=== PATIENT | female | born 1930 | race Caucasian/White ===

== ENCOUNTER 2020-04-14 19:33 | Inpatient (IN) | payer MEDICARE, OTHER ==
[~2020-04-14] VITALS: Ht 154.9 cm; Wt 53.3 kg
--- NOTE | 2020-04-14 19:50 | NUR ---
Dr. Perez at bedside for MSE.
--- NOTE | 2020-04-14 20:00 | NUR ---
Xray at bedside.
[2020-04-14] MEDS ORDERED: CARV3.12 PO (20:23)
[2020-04-14] MEDS ORDERED: ATOR40TA PO (20:23)
[2020-04-14] MEDS ORDERED: DONE5TAB34 PO (20:23)
[2020-04-14] MEDS ORDERED: CALC-883 PO (20:23)
[2020-04-14] MEDS ORDERED: MIRT-121 PO (20:31)
[2020-04-14] MEDS ORDERED: CRAN450C PO (20:31)
[2020-04-14] MEDS ORDERED: PSYL822P20 PO (20:31)
[2020-04-14] MEDS ORDERED: ZINC220C2 PO (20:31)
[2020-04-14] MEDS ORDERED: FERR325C PO (20:31)
[2020-04-14] MEDS ORDERED: ACET-2154 PO ×2 (20:31)
[2020-04-14] MEDS ORDERED: DOCU250C14 PO (20:31)
[2020-04-14] MEDS ORDERED: MAG355OR18 PO (20:31)
[2020-04-14] MEDS ORDERED: IPRA3AMP23 IH (20:31)
[2020-04-14] MEDS ORDERED: MULT1TAB11 PO (20:31)
[2020-04-14] MEDS ORDERED: LOPE2CAP PO (20:31)
[2020-04-14] MEDS ORDERED: [UNRECOGNIZED DRUG - CODE] PO (20:31)
[2020-04-14] MEDS ORDERED: NA P230E RC (20:31)
[2020-04-14 21:14] LABS: ABG BASE EXCESS -4.2 mmol/L; ABG HCO3 23.2 mmol/L; ABG PCO2 52.2 mmHg (35.0-45.0); ABG PH 7.265 (7.350-7.450); ABG PO2 87.8 mmHg (75.0-100.0); ABG SITE RIGHT RADIAL; ABG TOTAL HEMOGLOBIN 12.9 G/dL (12.0-16.0); COHb 1.6 % (0.5-1.5); MetHb 0.4 % (0.0-1.5)
[2020-04-14 21:16] LABS: BASOPHILS % (AUTO) 0.1 % (0.0-2.0); EOSINOPHILS % (AUTO) 0.1 % (0.0-7.0); HEMATOCRIT 40.1 % (31.2-41.9); HEMOGLOBIN 12.7 g/dL (10.9-14.3); LYMPHOCYTES # (AUTO) 0.7 K/uL (20.0-40.0); LYMPHOCYTES % (AUTO) 3.2 % (20.5-51.5); MEAN CORPUSCULAR HEMOGLOBIN 30.2 uug (24.7-32.8); MEAN CORPUSCULAR HGB CONC 32 g/dL (32.3-35.6); MEAN CORPUSCULAR VOLUME 95.5 fL (75.5-95.3); MONOCYTES # (AUTO) 0.8 K/uL (2.0-10.0); MONOCYTES % (AUTO) 3.7 % (0.0-11.0); NEUTROPHILS # (AUTO) 21.4 K/uL (1.8-8.9); NEUTROPHILS % (AUTO) 92.9 % (38.5-71.5); PLATELET COUNT (AUTO) 101 K/uL (179-408); WHITE BLOOD COUNT (AUTO) 23.1 K/uL (3.8-11.8)
[2020-04-14 21:40] LABS: CREATINE KINASE, TOTAL 62 U/L (26-192); POTASSIUM 3.8 mmol/L (3.5-5.1)
[2020-04-14 21:41] LABS: ALANINE AMINOTRANSFERASE 138 U/L (14-59); ALKALINE PHOSPHATASE 98 U/L (50-136); ASPARTATE AMINOTRANSFERASE 84 U/L (15-37); BILIRUBIN,TOTAL 0.8 mg/dL (0.2-1.0); CARBON DIOXIDE 27 mmol/L (21-32); CREATININE 2.6 mg/dL (0.6-1.3); GLUCOSE 114 mg/dL (74-106)
[2020-04-14 21:42] LABS: LACTATE DEHYDROGENASE 558 U/L (81-234); TOTAL PROTEIN, SERUM 6.5 g/dL (6.4-8.2)
[2020-04-14 21:43] LABS: CHLORIDE 129 mmol/L (98-107); UREA NITROGEN, BLOOD 86 mg/dL (7-18)
[2020-04-14 21:59] LABS: FERRITIN 1459 ng/mL (8-252)
--- NOTE | 2020-04-14 22:02 | NUR ---
Called [facility] nephrology to page Dr. Saenz.
[2020-04-14] MEDS ORDERED: PIPERACILLIN SODIUM/TAZOBACTAM 3.375 G in IV DEXTROSE 5% 50 ML IV ONE (22:15)
[2020-04-14] MEDS ORDERED: VANCOMYCIN 1G/D5W 200 ML PIGGYBACK IV ONE (22:15)
--- NOTE | 2020-04-14 22:25 | NUR ---
Dr. Perez speaking with Dr. Saenz.
[2020-04-14] MEDS ORDERED: IV NORMAL SALINE 500 ML IV ONE (22:30)
--- NOTE | 2020-04-14 23:43 | NUR ---
Inserted shannon catheter, patient tolerated procedure well, urine sample collected, sent to lab.
[2020-04-14] MEDS ORDERED: PIPERACILLIN/TAZOBACTAM/D5W 50 ML IV ONE (23:50)
[2020-04-14] MEDS ORDERED: VANCOMYCIN IV 200 ML ONE (23:51)
[2020-04-15 00:46] LABS: *BILIRUBIN,URIN NEGATIVE (NEGATIVE); *BLOOD, URINE 2+ (NEGATIVE); *CLARITY,URINE CLOUDY (CLEAR); *COLOR,URINE YELLOW (YELLOW); *KETONES,URINE NEGATIVE (NEGATIVE); *UROBILINOGEN,URINE 0.2 E.U./dl (NORMAL); LEUKOCYTE ESTERASE ,URINE 1+ (NEGATIVE); NITRITE, URINE NEGATIVE (NEGATIVE); PH,URINE 5.5 (5.0-8.0); UGLUCOSE NEGATIVE (NEGATIVE)
[2020-04-15 01:08] LABS: BACTERIA,URINE MODERATE /HPF (NONE SEEN); SQUAMOUS EPITHELIAL CELL,UR MANY /HPF (NONE SEEN); URINE AMORPHOUS URATE MODERATE /HPF
[2020-04-15 01:09] LABS: COARSE GRANULAR CASTS,URINE FEW /LPF
[2020-04-15] MEDS ORDERED: IV NORMAL SALINE 500 ML IV ONE (01:45)
--- NOTE | 2020-04-15 01:49 | NUR ---
Xray at bedside.
--- NOTE | 2020-04-15 02:30 | NUR ---
Report given to Gaye ROSADO Tele.
--- NOTE | 2020-04-15 03:50 | NUR ---
Received pt from ER via [employer]. Pt in stable condition. No s/s of distress at this time. Vitals taken. BP elevated at 179/72. Dr. Ortiz notified of patients admission and was informed that admitting orders are needed. No other issues or concerns at this time. Addendum: 04/15/20 at 0513 by VIVIANA COONEY RN Dr Ortiz stated that he would put in orders for admission and for high BP
[2020-04-15 04:00] VITALS: BP 179/72
--- NOTE | 2020-04-15 05:27 | NUR ---
Rechecked pts BP and it was 158/74
--- NOTE | 2020-04-15 05:58 | NUR ---
Called Dr. Ellison for ortho consult.
--- NOTE | 2020-04-15 07:03 | NUR ---
Pt slept throughout the rest of the shift with no complaints. Denies pain or SOB. Safety and comfort provided. SR on monitor. Dr. Ortiz spoken to again and orders were placed. No other issues or concerns at this time. Will endorse to day shift.
[2020-04-15] MEDS ORDERED: ACETAMINOPHEN 325 MG TABLET PO PRN (07:15)
[2020-04-15] MEDS ORDERED: ONDANSETRON 4 MG/2 ML VIAL IV PRN (07:15)
[2020-04-15] MEDS ORDERED: ZOLPIDEM 5 MG TABLET PO PRN (07:15)
[2020-04-15] MEDS ORDERED: Z GUARD REMEDY PASTE 57 GM TUBE TOP PRN (07:15)
[2020-04-15] MEDS ORDERED: MAGNESIUM HYDROXIDE 30 ML LIQUID UDC PO PRN (07:15)
[2020-04-15] MEDS: IV 1/2NS 1000 ML 1,000 ML IV PRN ×2 (07:18→18:33)
--- NOTE | 2020-04-15 07:43 | NUR ---
Still waiting on pharmacy to bring 0700 antibiotics - notified day shift
[2020-04-15] MEDS: CEFTRIAXONE 1 G in IV DEXTROSE 5% 50 ML IV SCH (08:27)
[2020-04-15] MEDS: CARVEDILOL 3.125 MG TABLET PO SCH ×3 (09:40→21:00)
[2020-04-15] MEDS: DONEPEZIL 5 MG TABLET PO SCH (09:40)
[2020-04-15] MEDS: MIRTAZAPINE 15 MG TABLET PO SCH (09:40)
[2020-04-15] MEDS: HEPARIN SODIUM,PORCINE 5,000 UNITS/ML VIAL SQ SCH ×2 (09:52→20:36)
[2020-04-15 10:22] LABS: HEMATOCRIT 38.2 % (31.2-41.9); HEMOGLOBIN 11.7 g/dL (10.9-14.3); LYMPHOCYTES # (AUTO) 1.1 K/uL (20.0-40.0); LYMPHOCYTES % (AUTO) 4.4 % (20.5-51.5); MEAN CORPUSCULAR HEMOGLOBIN 30.1 uug (24.7-32.8); MEAN CORPUSCULAR HGB CONC 31 g/dL (32.3-35.6); MEAN CORPUSCULAR VOLUME 97.9 fL (75.5-95.3); MONOCYTES # (AUTO) 1.1 K/uL (2.0-10.0); MONOCYTES % (AUTO) 4.3 % (0.0-11.0); NEUTROPHILS # (AUTO) 22.8 K/uL (1.8-8.9); NEUTROPHILS % (AUTO) 91.3 % (38.5-71.5); PLATELET COUNT (AUTO) 90 K/uL (179-408); WHITE BLOOD COUNT (AUTO) 24.9 K/uL (3.8-11.8)
[2020-04-15 10:36] LABS: ALANINE AMINOTRANSFERASE 138 U/L (14-59); ALKALINE PHOSPHATASE 84 U/L (50-136); ASPARTATE AMINOTRANSFERASE 87 U/L (15-37); BILIRUBIN,TOTAL 0.5 mg/dL (0.2-1.0); CARBON DIOXIDE 24 mmol/L (21-32); CREATININE 2.4 mg/dL (0.6-1.3); GLUCOSE 130 mg/dL (74-106); MAGNESIUM 1.9 mg/dL (1.8-2.4); PHOSPHOROUS 4.5 mg/dL (2.5-4.9); TOTAL PROTEIN, SERUM 5.8 g/dL (6.4-8.2); UREA NITROGEN, BLOOD 79 mg/dL (7-18)
[2020-04-15 10:48] LABS: CHLORIDE 129 mmol/L (98-107)
[2020-04-15 16:00] VITALS: BP 169/67
--- NOTE | 2020-04-15 19:15 | NUR ---
endorsed by day shift nurse , dr stevenson came to see patient , but not a candidate right now for surgery
--- NOTE | 2020-04-15 19:30 | NUR ---
received patient , non verbal , very pale , npo , incontinet , right shoulder bone protruding from the previous fall from the facility , right arm swollen , left arm slightly swollen and bruised , mid line intact with 1/2 ns at 125 ml running
[2020-04-15 20:00] VITALS: BP 126/78
[2020-04-15] MEDS: ATORVASTATIN 40 MG TABLET PO SCH ×2 (20:35→21:00)
[2020-04-16] VITALS: BP 136/70
--- NOTE | 2020-04-16 00:44 | NUR ---
16 fr shannon catheter was inserted with one attempt , clear yellow output but very minimal output
[2020-04-16] MEDS: IV 1/2NS 1000 ML 1,000 ML IV PRN (02:39)
[2020-04-16] MEDS ORDERED: Z GUARD REMEDY PASTE 57 GM TUBE TOP PRN (03:15)
[2020-04-16 04:00] VITALS: BP 143/78
[2020-04-16 06:31] LABS: *BILIRUBIN,URIN NEGATIVE (NEGATIVE); *BLOOD, URINE 2+ (NEGATIVE); *CLARITY,URINE SLIGHTLY CLOUDY (CLEAR); *COLOR,URINE YELLOW (YELLOW); *KETONES,URINE NEGATIVE (NEGATIVE); *UROBILINOGEN,URINE 0.2 E.U./dl (NORMAL); LEUKOCYTE ESTERASE ,URINE NEGATIVE (NEGATIVE); NITRITE, URINE NEGATIVE (NEGATIVE); PH,URINE 5.5 (5.0-8.0); UGLUCOSE NEGATIVE (NEGATIVE)
[2020-04-16 07:37] LABS: *CREATININE,URINE 44.2 mg/dL (30-125)
[2020-04-16 08:27] LABS: BASOPHILS # (AUTO) 0.1 K/uL (0.0-8.0); BASOPHILS % (AUTO) 0.3 % (0.0-2.0); EOSINOPHILS # (AUTO) 0.1 K/uL (0.0-0.7); EOSINOPHILS % (AUTO) 0.6 % (0.0-7.0); HEMATOCRIT 32.4 % (31.2-41.9); HEMOGLOBIN 10.1 g/dL (10.9-14.3); LYMPHOCYTES # (AUTO) 1.3 K/uL (20.0-40.0); LYMPHOCYTES % (AUTO) 7.7 % (20.5-51.5); MEAN CORPUSCULAR HEMOGLOBIN 30.4 uug (24.7-32.8); MEAN CORPUSCULAR HGB CONC 31 g/dL (32.3-35.6); MEAN CORPUSCULAR VOLUME 97.8 fL (75.5-95.3); MONOCYTES # (AUTO) 0.7 K/uL (2.0-10.0); MONOCYTES % (AUTO) 4.2 % (0.0-11.0); NEUTROPHILS # (AUTO) 14.6 K/uL (1.8-8.9); NEUTROPHILS % (AUTO) 87.2 % (38.5-71.5); PLATELET COUNT (AUTO) 76 K/uL (179-408); RED BLOOD CELL COUNT(AUTO) 3.31 MIL/uL (3.63-4.92); WHITE BLOOD COUNT (AUTO) 16.7 K/uL (3.8-11.8)
[2020-04-16] MEDS: DONEPEZIL 5 MG TABLET PO SCH (09:00)
[2020-04-16] MEDS: MIRTAZAPINE 15 MG TABLET PO SCH (09:00)
[2020-04-16] MEDS: CARVEDILOL 3.125 MG TABLET PO SCH (09:00)
[2020-04-16 09:02] LABS: THYROID STIMULATING HORMONE 0.914 mIU/mL (0.358-3.740)
[2020-04-16 09:04] LABS: CREATINE KINASE, TOTAL 50 U/L (26-192)
[2020-04-16 09:28] LABS: ALANINE AMINOTRANSFERASE 124 U/L (14-59); ALKALINE PHOSPHATASE 90 U/L (50-136); ASPARTATE AMINOTRANSFERASE 89 U/L (15-37); BILIRUBIN,TOTAL 0.6 mg/dL (0.2-1.0); CARBON DIOXIDE 19 mmol/L (21-32); CHOLESTEROL 111 mg/dL (<200); CREATININE 2.2 mg/dL (0.6-1.3); GLUCOSE 68 mg/dL (74-106); HDL CHOLESTEROL 39 mg/dL (40-60); MAGNESIUM 1.6 mg/dL (1.8-2.4); PHOSPHOROUS 3.1 mg/dL (2.5-4.9); TOTAL PROTEIN, SERUM 5.1 g/dL (6.4-8.2); TRIGLYCERIDES 121 MG/DL (30-150); UREA NITROGEN, BLOOD 72 mg/dL (7-18)
[2020-04-16] MEDS: CEFTRIAXONE 1 G in IV DEXTROSE 5% 50 ML IV SCH (09:35)
[2020-04-16] MEDS: HEPARIN SODIUM,PORCINE 5,000 UNITS/ML VIAL SQ SCH ×2 (09:36→22:03)
[2020-04-16 09:52] LABS: CHLORIDE 126 mmol/L (98-107)
[2020-04-16 11:02] VITALS: BP 111/44
[2020-04-16] MEDS ORDERED: MAGNESIUM SULFATE/D5W 100 ML IV SCH (11:15)
--- NOTE | 2020-04-16 11:28 | NUR ---
WOUND CARE CONSULT: REVIEWED CHART,NURSING DOCUMENTATION AND PHOTOS WHICH INDICATE RASH TO BUTTOCKS, PRESENT ON ADMISSION. RECOMMENDATIONS MADE FOR SKIN PROTECTION. DISCUSSED WITH NURSING STAFF. MD IN AGREEMENT WITH PLAN OF CARE.
[2020-04-16 15:06] VITALS: BP 116/38
[2020-04-16 17:16] LABS: BACTERIA,URINE NONE SEEN /HPF (NONE SEEN); SQUAMOUS EPITHELIAL CELL,UR FEW /HPF (NONE SEEN); WBC,URINE NONE SEEN /HPF (0-3); YEAST,URINE FEW /HPF (NONE SEEN)
[2020-04-16] MEDS: CLOTRIMAZOLE 1% CREAM 30 GM TUBE TOP SCH (17:18)
--- NOTE | 2020-04-16 19:34 | NUR ---
pt resting in bed, no signs of distress noted. safety precautions in place. will endorse to oncoming nurse.
[2020-04-16 20:00] VITALS: BP 138/69
--- NOTE | 2020-04-16 20:00 | NUR ---
AWAKE EYES OPEN,EYES RED, NO COMPLAINED OF PAIN.RIGHT ARM SWOLLEN AND PURPLE, ELEVATED IN ONE PILLOW WITH FAINT RADIAL PULSE.AIR MATTRESS PLACED,SACRUM AREA RED Z GUARD APPLIED,NO PAIN NOTED,REPOSITION FOR COMFORT.
[2020-04-17] VITALS: BP 132/65
[2020-04-17] MEDS: IV 1/2NS 1000 ML 1,000 ML IV PRN (02:44)
[2020-04-17 04:00] VITALS: BP 127/55
[2020-04-17 08:06] LABS: HEPATITIS B SURFACE AB Reactive (.); HEPATITIS B SURFACE AG Negative (Negative)
[2020-04-17] MEDS: CARVEDILOL 3.125 MG TABLET PO SCH ×2 (09:00→21:40)
[2020-04-17] MEDS: CEFTRIAXONE 1 G in IV DEXTROSE 5% 50 ML IV SCH (10:54)
[2020-04-17] MEDS: HEPARIN SODIUM,PORCINE 5,000 UNITS/ML VIAL SQ SCH ×2 (10:55→21:39)
[2020-04-17 11:22] LABS: BASOPHILS % (AUTO) 0.3 % (0.0-2.0); EOSINOPHILS # (AUTO) 0.1 K/uL (0.0-0.7); EOSINOPHILS % (AUTO) 0.7 % (0.0-7.0); HEMATOCRIT 28.1 % (31.2-41.9); HEMOGLOBIN 8.7 g/dL (10.9-14.3); LYMPHOCYTES # (AUTO) 1.4 K/uL (20.0-40.0); MEAN CORPUSCULAR HEMOGLOBIN 29.8 uug (24.7-32.8); MEAN CORPUSCULAR HGB CONC 31 g/dL (32.3-35.6); MEAN CORPUSCULAR VOLUME 96.7 fL (75.5-95.3); MONOCYTES # (AUTO) 0.5 K/uL (2.0-10.0); MONOCYTES % (AUTO) 3.8 % (0.0-11.0); NEUTROPHILS # (AUTO) 12.1 K/uL (1.8-8.9); NEUTROPHILS % (AUTO) 85.2 % (38.5-71.5); PLATELET COUNT (AUTO) 72 K/uL (179-408); RED BLOOD CELL COUNT(AUTO) 2.91 MIL/uL (3.63-4.92); WHITE BLOOD COUNT (AUTO) 14.2 K/uL (3.8-11.8)
[2020-04-17 11:40] LABS: CARBON DIOXIDE 16 mmol/L (21-32); CHLORIDE 119 mmol/L (98-107); CREATININE 1.9 mg/dL (0.6-1.3); GLUCOSE 80 mg/dL (74-106); POTASSIUM 3.9 mmol/L (3.5-5.1); UREA NITROGEN, BLOOD 77 mg/dL (7-18)
[2020-04-17 11:48] VITALS: BP 103/57
[2020-04-17] MEDS: CLOTRIMAZOLE 1% CREAM 30 GM TUBE TOP SCH ×2 (11:55→17:42)
[2020-04-17 15:47] VITALS: BP 130/90
[2020-04-17] MEDS: IV D5W 1000ML 1,000 ML IV PRN (19:42)
--- NOTE | 2020-04-17 20:00 | NUR ---
ASLEEP. IV CHANGED TO D5W RIGHT ARM ELEVATED IN 1 PILLOW, RIGHT ARM PURPLISH IN COLR WITH FAINT RADIAL PULSE, BP HIGH COREG GIVEN WITH LITTLE BIT OF APPLE SAUCE. SACRUM WITH RASHES NOTED, CREAM APPLIED, COVID ISOLATION MAINTAIN.CONDION UNCHANGED. SLEPT AT LONG INTERVAL.
[2020-04-17 21:37] VITALS: BP 169/68
[2020-04-17] MEDS: ATORVASTATIN 40 MG TABLET PO SCH (21:40)
[2020-04-18 00:39] VITALS: BP 173/60
[2020-04-18 04:26] VITALS: BP 128/82
[2020-04-18] MEDS: IV D5W 1000ML 1,000 ML IV PRN (06:40)
[2020-04-18 08:10] LABS: A/G RATIO 0.8 (0.7-1.7); ALPHA-1-GLOBULIN 0.2 g/dL (0.0-0.4); ALPHA-2-GLOBULIN 0.5 g/dL (0.4-1.0); BETA GLOBULIN 0.8 g/dL (0.7-1.3); GAMMA GLOBULIN 0.8 g/dL (0.4-1.8); GLOBULIN, TOTAL 2.4 g/dL (2.2-3.9); M-SPIKE Not Observed g/dL (Not Observed)
[2020-04-18 08:19] LABS: BASOPHILS % (AUTO) 0.4 % (0.0-2.0); EOSINOPHILS # (AUTO) 0.2 K/uL (0.0-0.7); EOSINOPHILS % (AUTO) 1.8 % (0.0-7.0); HEMATOCRIT 22.3 % (31.2-41.9); LYMPHOCYTES # (AUTO) 1.2 K/uL (20.0-40.0); LYMPHOCYTES % (AUTO) 11.4 % (20.5-51.5); MEAN CORPUSCULAR HEMOGLOBIN 31.2 uug (24.7-32.8); MEAN CORPUSCULAR HGB CONC 33 g/dL (32.3-35.6); MEAN CORPUSCULAR VOLUME 94.6 fL (75.5-95.3); MONOCYTES # (AUTO) 0.4 K/uL (2.0-10.0); MONOCYTES % (AUTO) 3.9 % (0.0-11.0); NEUTROPHILS # (AUTO) 8.5 K/uL (1.8-8.9); NEUTROPHILS % (AUTO) 82.5 % (38.5-71.5); PLATELET COUNT (AUTO) 65 K/uL (179-408); WHITE BLOOD COUNT (AUTO) 10.3 K/uL (3.8-11.8)
[2020-04-18 09:18] LABS: ALANINE AMINOTRANSFERASE 75 U/L (14-59); ALKALINE PHOSPHATASE 70 U/L (50-136); ASPARTATE AMINOTRANSFERASE 63 U/L (15-37); BILIRUBIN,TOTAL 0.4 mg/dL (0.2-1.0); CARBON DIOXIDE 14 mmol/L (21-32); CHLORIDE 115 mmol/L (98-107); CREATININE 1.6 mg/dL (0.6-1.3); GLUCOSE 119 mg/dL (74-106); MAGNESIUM 1.7 mg/dL (1.8-2.4); PHOSPHOROUS 1.2 mg/dL (2.5-4.9); TOTAL PROTEIN, SERUM 3.9 g/dL (6.4-8.2)
[2020-04-18 10:09] LABS: UREA NITROGEN, BLOOD 80 mg/dL (7-18)
[2020-04-18 10:10] LABS: RED BLOOD CELL COUNT(AUTO) 2.35 MIL/uL (3.63-4.92)
[2020-04-18 10:12] LABS: POTASSIUM 2.8 mmol/L (3.5-5.1)
[2020-04-18 10:14] LABS: HEMOGLOBIN 7.3 g/dL (10.9-14.3)
--- NOTE | 2020-04-18 10:15 | NUR ---
1012AM - Received critical values from lab: Hgb 7.3, Potassium 2.8, Albumin 1.3, BUN 80. [facility] Nurse Practitioner, Bruce input new orders. Nurse carried out orders
[2020-04-18] MEDS: MIRTAZAPINE 15 MG TABLET PO SCH (10:35)
[2020-04-18] MEDS: DONEPEZIL 5 MG TABLET PO SCH (10:35)
[2020-04-18] MEDS: CARVEDILOL 3.125 MG TABLET PO SCH ×2 (10:35→21:00)
[2020-04-18] MEDS: CLOTRIMAZOLE 1% CREAM 30 GM TUBE TOP SCH ×2 (10:41→16:55)
[2020-04-18] MEDS: HEPARIN SODIUM,PORCINE 5,000 UNITS/ML VIAL SQ SCH ×2 (10:44→21:00)
[2020-04-18] MEDS: CEFTRIAXONE 1 G in IV DEXTROSE 5% 50 ML IV SCH (10:47)
[2020-04-18] MEDS ORDERED: POTASSIUM PHOSPHATE MM 15 MMOL in IV NORMAL SALINE 250 ML IV ONE (11:00)
[2020-04-18] MEDS ORDERED: MAGNESIUM SULFATE/D5W 100 ML IV SCH (11:00)
[2020-04-18] MEDS: POTASSIUM CHLORIDE 50 ML IV SCH ×5 (13:43→18:30)
[2020-04-18 14:15] VITALS: BP 99/54
[2020-04-18 17:07] VITALS: BP 92/35
[2020-04-18] MEDS ORDERED: POTASSIUM CHLORIDE 50 ML IV SCH (19:00)
--- NOTE | 2020-04-18 19:30 | NUR ---
Pt received in bed, alert to self. On RA sating at 96%. No acute distress noted. Bed is locked and in lowest position. Does not appear to have pain. No other issues or concerns a this time.
[2020-04-18 20:01] LABS: EOSINOPHILS % (MANUAL) 1 % (0-8); LYMPHOCYTES % (MANUAL) 8 % (20-40); MONOCYTES % (MANUAL) 1 % (2-10); NEUTROPHILS % (MANUAL) 90 % (42-75)
[2020-04-18] MEDS: ATORVASTATIN 40 MG TABLET PO SCH (21:00)
--- NOTE | 2020-04-18 21:00 | NUR ---
Heparin not administered - platelets 67
[2020-04-18 21:07] VITALS: BP 128/100
--- NOTE | 2020-04-18 23:00 | NUR ---
Day shift was unable to start potassium infusion. Potassium started at 2300 04/18/2020. Will notify pharmacy in AM
[2020-04-18] MEDS: POTASSIUM PHOSPHATE MM 7.5 MMOL in IV NORMAL SALINE 97.5 ML IV SCH (23:01)
[2020-04-18] MEDS: IV D5 1/2 NS 1000 ML 1,000 ML IV PRN (23:01)
[2020-04-19 01:28] VITALS: BP 116/53
[2020-04-19] MEDS: POTASSIUM PHOSPHATE MM 7.5 MMOL in IV NORMAL SALINE 97.5 ML IV SCH (03:48)
[2020-04-19 05:49] VITALS: BP 107/66
--- NOTE | 2020-04-19 07:59 | NUR ---
Spoke to pharmacy about potassium 2000 not being given due to running K Phos during my shift. He stated he will adjust the time based off of potassium lab results.
[2020-04-19 08:04] LABS: MEAN CORPUSCULAR VOLUME 93.6 fL (75.5-95.3)
[2020-04-19 08:06] LABS: BASOPHILS % (AUTO) 0.4 % (0.0-2.0); EOSINOPHILS # (AUTO) 0.2 K/uL (0.0-0.7); EOSINOPHILS % (AUTO) 1.4 % (0.0-7.0); LYMPHOCYTES # (AUTO) 1.4 K/uL (20.0-40.0); LYMPHOCYTES % (AUTO) 12.6 % (20.5-51.5); MEAN CORPUSCULAR HEMOGLOBIN 30.6 uug (24.7-32.8); MEAN CORPUSCULAR HGB CONC 33 g/dL (32.3-35.6); MONOCYTES # (AUTO) 0.4 K/uL (2.0-10.0); NEUTROPHILS # (AUTO) 9.2 K/uL (1.8-8.9); NEUTROPHILS % (AUTO) 81.6 % (38.5-71.5); PLATELET COUNT (AUTO) 65 K/uL (179-408); WHITE BLOOD COUNT (AUTO) 11.2 K/uL (3.8-11.8)
[2020-04-19] MEDS: DONEPEZIL 5 MG TABLET PO SCH (09:00)
[2020-04-19] MEDS: MIRTAZAPINE 15 MG TABLET PO SCH (09:00)
[2020-04-19] MEDS ORDERED: FAMOTIDINE. 20 MG/2 ML VIAL IV SCH (09:00)
[2020-04-19] MEDS: CARVEDILOL 3.125 MG TABLET PO SCH ×2 (09:00→21:00)
[2020-04-19 09:07] LABS: RED BLOOD CELL COUNT(AUTO) 1.69 MIL/uL (3.63-4.92)
[2020-04-19 09:10] LABS: HEMOGLOBIN 5.2 g/dL (10.9-14.3)
[2020-04-19 09:11] LABS: HEMATOCRIT 15.9 % (31.2-41.9)
[2020-04-19 09:49] LABS: ALANINE AMINOTRANSFERASE 74 U/L (14-59); ALKALINE PHOSPHATASE 67 U/L (50-136); ASPARTATE AMINOTRANSFERASE 57 U/L (15-37); BILIRUBIN,TOTAL 0.4 mg/dL (0.2-1.0); CARBON DIOXIDE 14 mmol/L (21-32); CHLORIDE 115 mmol/L (98-107); CREATININE 1.6 mg/dL (0.6-1.3); GLUCOSE 81 mg/dL (74-106); MAGNESIUM 1.7 mg/dL (1.8-2.4); PHOSPHOROUS 2.7 mg/dL (2.5-4.9); POTASSIUM 4.3 mmol/L (3.5-5.1)
[2020-04-19] MEDS: FAMOTIDINE. 20 MG/2 ML VIAL IV SCH ×2 (09:49→21:23)
[2020-04-19] MEDS: CLOTRIMAZOLE 1% CREAM 30 GM TUBE TOP SCH ×2 (09:49→16:40)
[2020-04-19 09:53] LABS: UREA NITROGEN, BLOOD 82 mg/dL (7-18)
[2020-04-19] MEDS: CEFTRIAXONE 1 G in IV DEXTROSE 5% 50 ML IV SCH (09:54)
[2020-04-19 11:42] LABS: IRON, SERUM 36 ug/dL (50-175)
[2020-04-19 12:09] LABS: FERRITIN 720 ng/mL (8-252)
[2020-04-19 15:55] LABS: NEUTROPHILS % (MANUAL) 81 % (42-75)
[2020-04-19 15:56] LABS: EOSINOPHILS % (MANUAL) 1 % (0-8); LYMPHOCYTES % (MANUAL) 14 % (20-40); MONOCYTES % (MANUAL) 4 % (2-10)
--- NOTE | 2020-04-19 18:27 | NUR ---
patient is alert and oriented to touch only. She opens her eyes when she hears staff voice but does not respond. Critical lab values of hemoglobin 5.2 and hematocrit 15.[address] Rivas. Orders placed for packed RBC blood transfusion. This video game script writer attempted to contact patient's family. Called and left message x2 for Anibal Forbes (next of kin) [phone], waiting for call back to obtain consent for blood transfusion. patient is on air mattress. On room air, tolerating well, saturating above 95%. Patient is currently NPO because she is not alert enough to swallow. ST evaluation done, patient failed per ST. PO medications held.
--- NOTE | 2020-04-19 19:30 | NUR ---
patient received lying in bed. pale and cold. non verbal and confused. 1 unit of blood ordered during day time not given. BP at 82/51 and HR 55. will contact Dr. Rivas regarding patient status.
[2020-04-19 20:21] VITALS: BP 105/72
[2020-04-19] MEDS: ATORVASTATIN 40 MG TABLET PO SCH ×2 (21:00→21:23)
--- NOTE | 2020-04-19 21:00 | NUR ---
dr. mora zambrano provided verbal consent for emergency blood transfusion for patient. consent in file for Dr to follow up.
[2020-04-19 22:15] VITALS: BP 85/52
[2020-04-19 22:30] VITALS: BP 88/51
[2020-04-19 23:00] VITALS: BP 92/61
[2020-04-20] VITALS (14 sets, daily range): BP systolic 97–142; BP diastolic 33–106
[2020-04-20] MEDS: IV D5 1/2 NS 1000 ML 1,000 ML IV PRN (01:27)
--- NOTE | 2020-04-20 01:30 | NUR ---
blood transfusion complete. no reaction. will continue to monitor and assess.
[2020-04-20 03:28] LABS: HEMOGLOBIN 7.8 g/dL (10.9-14.3)
[2020-04-20] MEDS: CEFTRIAXONE 1 G in IV DEXTROSE 5% 50 ML IV SCH (08:35)
[2020-04-20] MEDS: FAMOTIDINE. 20 MG/2 ML VIAL IV SCH (08:41)
[2020-04-20] MEDS: DONEPEZIL 5 MG TABLET PO SCH (08:44)
[2020-04-20] MEDS: MIRTAZAPINE 15 MG TABLET PO SCH (08:45)
[2020-04-20] MEDS: CARVEDILOL 3.125 MG TABLET PO SCH ×2 (08:45→21:00)
[2020-04-20] MEDS: CLOTRIMAZOLE 1% CREAM 30 GM TUBE TOP SCH ×2 (08:46→17:03)
[2020-04-20 09:22] LABS: BASOPHILS # (AUTO) 0.1 K/uL (0.0-8.0); BASOPHILS % (AUTO) 1.1 % (0.0-2.0); EOSINOPHILS # (AUTO) 0.2 K/uL (0.0-0.7); EOSINOPHILS % (AUTO) 2.7 % (0.0-7.0); LYMPHOCYTES # (AUTO) 0.7 K/uL (20.0-40.0); LYMPHOCYTES % (AUTO) 9.5 % (20.5-51.5); MEAN CORPUSCULAR HEMOGLOBIN 30.6 uug (24.7-32.8); MEAN CORPUSCULAR HGB CONC 33 g/dL (32.3-35.6); MEAN CORPUSCULAR VOLUME 92.8 fL (75.5-95.3); MONOCYTES # (AUTO) 0.2 K/uL (2.0-10.0); MONOCYTES % (AUTO) 3.3 % (0.0-11.0); NEUTROPHILS # (AUTO) 6.3 K/uL (1.8-8.9); NEUTROPHILS % (AUTO) 83.4 % (38.5-71.5); PLATELET COUNT (AUTO) 53 K/uL (179-408); WHITE BLOOD COUNT (AUTO) 7.6 K/uL (3.8-11.8)
[2020-04-20 09:35] LABS: RED BLOOD CELL COUNT(AUTO) 2.22 MIL/uL (3.63-4.92)
[2020-04-20 09:39] LABS: HEMOGLOBIN 6.8 g/dL (10.9-14.3)
[2020-04-20 09:40] LABS: HEMATOCRIT 20.6 % (31.2-41.9)
[2020-04-20 09:45] LABS: ALANINE AMINOTRANSFERASE 62 U/L (14-59); ALKALINE PHOSPHATASE 69 U/L (50-136); ASPARTATE AMINOTRANSFERASE 45 U/L (15-37); BILIRUBIN,TOTAL 0.4 mg/dL (0.2-1.0); CARBON DIOXIDE 16 mmol/L (21-32); CHLORIDE 114 mmol/L (98-107); CREATININE 1.7 mg/dL (0.6-1.3); GLUCOSE 113 mg/dL (74-106); MAGNESIUM 1.7 mg/dL (1.8-2.4); PHOSPHOROUS 2.3 mg/dL (2.5-4.9); TOTAL PROTEIN, SERUM 4.2 g/dL (6.4-8.2); UREA NITROGEN, BLOOD 61 mg/dL (7-18)
--- NOTE | 2020-04-20 12:19 | NUR ---
DR RODRIGUEZ NOTIFIED OF LOW HH WITH ORDER TO TRANSFUSE 1 UNIT PRBC
--- NOTE | 2020-04-20 14:03 | NUR ---
blood transfusion started
[2020-04-20] MEDS ORDERED: SODIUM PHOSPHATE MM 15 MMOL in IV NORMAL SALINE 250 ML IV ONE (16:30)
--- NOTE | 2020-04-20 17:00 | NUR ---
BLOOD TRANSFUSION COMPLETED WITHOUT ANY REACTION
[2020-04-20 17:32] LABS: BAND % (MANUAL) 1 % (0-10); NEUTROPHILS % (MANUAL) 83 % (42-75)
[2020-04-20 17:33] LABS: EOSINOPHILS % (MANUAL) 6 % (0-8); LYMPHOCYTES % (MANUAL) 9 % (20-40); MONOCYTES % (MANUAL) 1 % (2-10)
--- NOTE | 2020-04-20 19:43 | NUR ---
Pt is resting in bed, AOx1. No distress noted at this time. SR on monitor. On 2L for comfort, tolerating well sating at 100%. Bed is locked and in lowest position. No other issues or concerns at this time.
[2020-04-20] MEDS: ATORVASTATIN 40 MG TABLET PO SCH (21:00)
[2020-04-21 00:57] VITALS: BP 126/61
[2020-04-21 04:00] VITALS: BP 120/31
--- NOTE | 2020-04-21 06:40 | NUR ---
Pt slept throughout the night. Does not appear to be in any distress at this time. SR on monitor. On 2L NC sating at 100%. Safety and comfort provided. Bed is locked and in lowest position. No other issues or concerns at this time. Will endorse to day shift.
[2020-04-21] MEDS: IV D5 1/2 NS 1000 ML 1,000 ML IV PRN (06:45)
[2020-04-21 07:30] LABS: CARBON DIOXIDE 17 mmol/L (21-32); CHLORIDE 115 mmol/L (98-107); CREATININE 1.8 mg/dL (0.6-1.3); GLUCOSE 144 mg/dL (74-106); PHOSPHOROUS 4.5 mg/dL (2.5-4.9); POTASSIUM 3.8 mmol/L (3.5-5.1); UREA NITROGEN, BLOOD 53 mg/dL (7-18)
[2020-04-21 08:01] LABS: BASOPHILS % (AUTO) 0.4 % (0.0-2.0); EOSINOPHILS # (AUTO) 0.1 K/uL (0.0-0.7); EOSINOPHILS % (AUTO) 1.5 % (0.0-7.0); HEMATOCRIT 28.6 % (31.2-41.9); HEMOGLOBIN 9.5 g/dL (10.9-14.3); LYMPHOCYTES # (AUTO) 0.6 K/uL (20.0-40.0); MEAN CORPUSCULAR HGB CONC 33 g/dL (32.3-35.6); MEAN CORPUSCULAR VOLUME 90.6 fL (75.5-95.3); MONOCYTES # (AUTO) 0.2 K/uL (2.0-10.0); MONOCYTES % (AUTO) 3.1 % (0.0-11.0); NEUTROPHILS # (AUTO) 5.6 K/uL (1.8-8.9); RED BLOOD CELL COUNT(AUTO) 3.16 MIL/uL (3.63-4.92); WHITE BLOOD COUNT (AUTO) 6.5 K/uL (3.8-11.8)
[2020-04-21] MEDS: CEFTRIAXONE 1 G in IV DEXTROSE 5% 50 ML IV SCH (08:13)
[2020-04-21] MEDS: FAMOTIDINE. 20 MG/2 ML VIAL IV SCH (08:16)
[2020-04-21 08:46] VITALS: BP 124/54
[2020-04-21] MEDS: DONEPEZIL 5 MG TABLET PO SCH (09:00)
[2020-04-21] MEDS: MIRTAZAPINE 15 MG TABLET PO SCH (09:00)
[2020-04-21] MEDS: CARVEDILOL 3.125 MG TABLET PO SCH ×2 (09:00→20:37)
[2020-04-21 09:46] LABS: PLATELET COUNT (AUTO) 49 K/uL (179-408)
[2020-04-21] MEDS: CLOTRIMAZOLE 1% CREAM 30 GM TUBE TOP SCH ×2 (09:47→16:49)
[2020-04-21 11:47] VITALS: BP 128/51
[2020-04-21 12:26] LABS: *RHEUMATOID FACTOR SCREEN NEGATIVE (NEGATIVE)
[2020-04-21 15:51] VITALS: BP 143/73
[2020-04-21 19:16] LABS: LYMPHOCYTES % (MANUAL) 10 % (20-40); MONOCYTES % (MANUAL) 4 % (2-10); NEUTROPHILS % (MANUAL) 86 % (42-75)
[2020-04-21 20:34] VITALS: BP 128/80
[2020-04-21] MEDS: ATORVASTATIN 40 MG TABLET PO SCH (20:37)
--- NOTE | 2020-04-21 22:00 | NUR ---
Received pt lying bed, nonverbal and confused. Responsive to light pain, opens eyes. No acute distress noted at the moment. Skin is pale dry and cold to touch. Vitals WNL. On 2L NC saturating @100%, no SOB noted. Sinus veronica on the monitor, 40-50s. On air mattress, turned Q2H. Wound on sacrum completed. NPO, medications held. PATRICIA midline intact, running D51/2NS 100cc/hr. All needs attended too. Safety measure in place. Will continue to monitor.
--- NOTE | 2020-04-21 22:30 | NUR ---
Spoke to lab multiple time to collect one time order for free kappa lamda light chains, under miscellaneous order. Lab unable to collect, because "unsure which tubes are needed for this lab order. Will follow up with day shift to clarify.
[2020-04-22 00:14] VITALS: BP 103/83
[2020-04-22 04:00] VITALS: BP 96/33
[2020-04-22] MEDS: IV D5 1/2 NS 1000 ML 1,000 ML IV PRN (04:48)
[2020-04-22 07:27] LABS: ALANINE AMINOTRANSFERASE 48 U/L (14-59); ALKALINE PHOSPHATASE 65 U/L (50-136); ASPARTATE AMINOTRANSFERASE 42 U/L (15-37); BILIRUBIN,TOTAL 0.3 mg/dL (0.2-1.0); CARBON DIOXIDE 15 mmol/L (21-32); CHLORIDE 113 mmol/L (98-107); CREATININE 1.6 mg/dL (0.6-1.3); GLUCOSE 123 mg/dL (74-106); MAGNESIUM 1.3 mg/dL (1.8-2.4); PHOSPHOROUS 4.3 mg/dL (2.5-4.9); POTASSIUM 3.5 mmol/L (3.5-5.1); TOTAL PROTEIN, SERUM 4.1 g/dL (6.4-8.2); UREA NITROGEN, BLOOD 45 mg/dL (7-18)
[2020-04-22 07:59] VITALS: BP 133/58
[2020-04-22 08:06] LABS: *IMMUNOGLOBULIN G, SERUM 783 mg/dL (586-1602); IMMUNOGLOBULIN A, SERUM 263 mg/dL (64-422); IMMUNOGLOBULIN M, SERUM 89 mg/dL (26-217)
[2020-04-22] MEDS: DONEPEZIL 5 MG TABLET PO SCH (09:00)
[2020-04-22] MEDS: MIRTAZAPINE 15 MG TABLET PO SCH (09:00)
[2020-04-22] MEDS: CARVEDILOL 3.125 MG TABLET PO SCH (09:00)
[2020-04-22 09:06] LABS: *ANTI-SCLERODERMA-70 AB <0.2 AI (0.0-0.9); *SJOGREN'S ANTI-SS-A <0.2 AI (0.0-0.9); *SJOGREN'S ANTI-SS-B <0.2 AI (0.0-0.9); *SMITH ANTIBODIES <0.2 AI (0.0-0.9); ANTI-DNA(DS) AB, QN <1 IU/mL (0-9)
[2020-04-22] MEDS: FAMOTIDINE. 20 MG/2 ML VIAL IV SCH (09:54)
[2020-04-22] MEDS: MAGNESIUM SULFATE/D5W 100 ML IV SCH ×2 (09:55→11:12)
[2020-04-22] MEDS: CLOTRIMAZOLE 1% CREAM 30 GM TUBE TOP SCH ×2 (09:56→17:07)
--- NOTE | 2020-04-22 09:56 | NUR ---
po meds not given unable to swallow
[2020-04-22 09:57] LABS: BASOPHILS % (AUTO) 0.5 % (0.0-2.0); EOSINOPHILS # (AUTO) 0.1 K/uL (0.0-0.7); EOSINOPHILS % (AUTO) 1.6 % (0.0-7.0); HEMATOCRIT 26.7 % (31.2-41.9); HEMOGLOBIN 8.9 g/dL (10.9-14.3); LYMPHOCYTES # (AUTO) 0.6 K/uL (20.0-40.0); LYMPHOCYTES % (AUTO) 9.4 % (20.5-51.5); MEAN CORPUSCULAR HEMOGLOBIN 30.2 uug (24.7-32.8); MEAN CORPUSCULAR HGB CONC 33 g/dL (32.3-35.6); MEAN CORPUSCULAR VOLUME 91.1 fL (75.5-95.3); MONOCYTES # (AUTO) 0.3 K/uL (2.0-10.0); MONOCYTES % (AUTO) 3.9 % (0.0-11.0); NEUTROPHILS # (AUTO) 5.5 K/uL (1.8-8.9); NEUTROPHILS % (AUTO) 84.6 % (38.5-71.5); PLATELET COUNT (AUTO) 54 K/uL (179-408); RED BLOOD CELL COUNT(AUTO) 2.94 MIL/uL (3.63-4.92); WHITE BLOOD COUNT (AUTO) 6.5 K/uL (3.8-11.8)
[2020-04-22 11:38] VITALS: BP 131/63
--- NOTE | 2020-04-22 11:44 | NUR ---
patient temp is 91.6 rectally, notified MD Marina made aware, heated blanked is being applied per MD order
--- NOTE | 2020-04-22 13:01 | NUR ---
rechecked temp after applying heating blanket, rectal temp 93.0, patient heart rate noted with sinus bradycardia pulse in 40s, dr payan contacted.
[2020-04-22] MEDS ORDERED: SODIUM BICARBONATE 8.4% 100 MEQ in IV D5 1/2 NS 1000 ML 1,000 ML IV PRN (13:30)
[2020-04-22] MEDS ORDERED: IV NORMAL SALINE 500 ML IV ONE (13:45)
--- NOTE | 2020-04-22 13:51 | NUR ---
patient blood pressure dropped to 95/38, bolus running as ordered by dr goodman.
[2020-04-22 14:53] VITALS: BP 95/45
[2020-04-22 17:34] LABS: EOSINOPHILS % (MANUAL) 3 % (0-8); LYMPHOCYTES % (MANUAL) 13 % (20-40); MONOCYTES % (MANUAL) 2 % (2-10); NEUTROPHILS % (MANUAL) 82 % (42-75)
--- NOTE | 2020-04-22 18:31 | NUR ---
URINE COLLECTED AND DROPPED OFF TO THE LAB
[2020-04-22 20:00] VITALS: BP 102/49
--- NOTE | 2020-04-22 20:15 | NUR ---
RECEIVED PATIENT ASLEEP IN BED. TEMPERATURE 98.0. PATIENT NPO ORDERED. ON ASPIRATION PRECAUTIONS. ON TELE SR. IVF INFUSING WELL TO LEFT UPPER MID-LINE. ON TELE SR. NO RESP. DISTRESS NOTED. ON O2 2L NC SATING WELL. ALL NEEDS ATTENDED, WILL CONTINUE TO MONITOR AND ASSESS.
[2020-04-22] MEDS: ATORVASTATIN 40 MG TABLET PO SCH (20:33)
[2020-04-23 05:44] VITALS: BP 116/45
[2020-04-23 06:49] LABS: BASOPHILS % (AUTO) 0.4 % (0.0-2.0); EOSINOPHILS # (AUTO) 0.1 K/uL (0.0-0.7); EOSINOPHILS % (AUTO) 1.2 % (0.0-7.0); HEMATOCRIT 27.1 % (31.2-41.9); LYMPHOCYTES # (AUTO) 0.7 K/uL (20.0-40.0); LYMPHOCYTES % (AUTO) 13.2 % (20.5-51.5); MEAN CORPUSCULAR HEMOGLOBIN 30.4 uug (24.7-32.8); MEAN CORPUSCULAR HGB CONC 33 g/dL (32.3-35.6); MEAN CORPUSCULAR VOLUME 91.8 fL (75.5-95.3); MONOCYTES # (AUTO) 0.3 K/uL (2.0-10.0); MONOCYTES % (AUTO) 6.1 % (0.0-11.0); NEUTROPHILS # (AUTO) 4.2 K/uL (1.8-8.9); NEUTROPHILS % (AUTO) 79.1 % (38.5-71.5); PLATELET COUNT (AUTO) 60 K/uL (179-408); RED BLOOD CELL COUNT(AUTO) 2.95 MIL/uL (3.63-4.92); WHITE BLOOD COUNT (AUTO) 5.3 K/uL (3.8-11.8)
[2020-04-23 07:29] LABS: THYROID STIMULATING HORMONE 3.795 mIU/mL (0.358-3.740)
[2020-04-23] MEDS: FAMOTIDINE. 20 MG/2 ML VIAL IV SCH (07:44)
[2020-04-23] MEDS: MIRTAZAPINE 15 MG TABLET PO SCH (08:20)
[2020-04-23] MEDS: CLOTRIMAZOLE 1% CREAM 30 GM TUBE TOP SCH ×2 (09:00→16:15)
[2020-04-23 09:33] LABS: CARBON DIOXIDE 16 mmol/L (21-32); CHLORIDE 110 mmol/L (98-107); CREATININE 1.7 mg/dL (0.6-1.3); GLUCOSE 79 mg/dL (74-106); MAGNESIUM 1.7 mg/dL (1.8-2.4); PHOSPHOROUS 3.7 mg/dL (2.5-4.9); POTASSIUM 3.2 mmol/L (3.5-5.1); UREA NITROGEN, BLOOD 33 mg/dL (7-18)
[2020-04-23] MEDS: IV D5 1/2 NS 1000 ML 1,000 ML IV PRN (11:21)
[2020-04-23 11:48] VITALS: BP 110/53
[2020-04-23] MEDS ORDERED: MAGNESIUM SULFATE/D5W 100 ML IV SCH (13:30)
[2020-04-23] MEDS: POTASSIUM CHLORIDE 50 ML IV SCH ×3 (14:03→15:57)
[2020-04-23 16:17] LABS: *BILIRUBIN,URIN NEGATIVE (NEGATIVE); *BLOOD, URINE 2+ (NEGATIVE); *CLARITY,URINE CLOUDY (CLEAR); *COLOR,URINE LIGHT YELLOW (YELLOW); *KETONES,URINE NEGATIVE (NEGATIVE); *UROBILINOGEN,URINE 0.2 E.U./dl (NORMAL); LEUKOCYTE ESTERASE ,URINE 2+ (NEGATIVE); NITRITE, URINE NEGATIVE (NEGATIVE); UGLUCOSE NEGATIVE (NEGATIVE)
[2020-04-23 16:33] VITALS: BP 141/67
[2020-04-23 18:38] LABS: BACTERIA,URINE FEW /HPF (NONE SEEN); SQUAMOUS EPITHELIAL CELL,UR FEW /HPF (NONE SEEN); YEAST,URINE MANY /HPF (NONE SEEN)
[2020-04-23 20:30] VITALS: BP 130/72
[2020-04-23] MEDS: ATORVASTATIN 40 MG TABLET PO SCH (20:34)
--- NOTE | 2020-04-24 05:00 | NUR ---
PATIENT ASLEEP. REPOSITIONED. NGT INFUSING WELL TO RIGHT NARES. INFUSING AT 40cc/hr. ON ASPIRATION PRECAUTIONS. HOB ELEVATED. ON O2 2L NC SATING 100%. NO RESP. DISTRESS NOTED. IVF INFUSING WELL. ALL NEEDS ATTENDED, WILL CONTINUE TO MONITOR AND ASSESS.
[2020-04-24] MEDS: IV D5 1/2 NS 1000 ML 1,000 ML IV PRN (05:07)
[2020-04-24 05:30] VITALS: BP 137/75
[2020-04-24] MEDS: MIRTAZAPINE 15 MG TABLET PO SCH (08:17)
[2020-04-24] MEDS: FAMOTIDINE. 20 MG/2 ML VIAL IV SCH (08:18)
[2020-04-24] MEDS: CLOTRIMAZOLE 1% CREAM 30 GM TUBE TOP SCH ×2 (08:18→17:28)
[2020-04-24 12:22] LABS: BASOPHILS % (AUTO) 0.4 % (0.0-2.0); EOSINOPHILS # (AUTO) 0.1 K/uL (0.0-0.7); EOSINOPHILS % (AUTO) 2.1 % (0.0-7.0); HEMATOCRIT 36.3 % (31.2-41.9); HEMOGLOBIN 11.9 g/dL (10.9-14.3); LYMPHOCYTES # (AUTO) 0.9 K/uL (20.0-40.0); LYMPHOCYTES % (AUTO) 13.5 % (20.5-51.5); MEAN CORPUSCULAR HEMOGLOBIN 30.7 uug (24.7-32.8); MEAN CORPUSCULAR HGB CONC 33 g/dL (32.3-35.6); MEAN CORPUSCULAR VOLUME 93.3 fL (75.5-95.3); MONOCYTES # (AUTO) 0.3 K/uL (2.0-10.0); MONOCYTES % (AUTO) 4.6 % (0.0-11.0); NEUTROPHILS # (AUTO) 5.5 K/uL (1.8-8.9); NEUTROPHILS % (AUTO) 79.4 % (38.5-71.5); PLATELET COUNT (AUTO) 75 K/uL (179-408); RED BLOOD CELL COUNT(AUTO) 3.89 MIL/uL (3.63-4.92); WHITE BLOOD COUNT (AUTO) 6.9 K/uL (3.8-11.8)
[2020-04-24 12:42] LABS: CARBON DIOXIDE 16 mmol/L (21-32); CHLORIDE 112 mmol/L (98-107); CREATININE 1.8 mg/dL (0.6-1.3); GLUCOSE 124 mg/dL (74-106); POTASSIUM 4.2 mmol/L (3.5-5.1); UREA NITROGEN, BLOOD 31 mg/dL (7-18)
[2020-04-24 12:58] VITALS: BP 148/84
[2020-04-24 16:20] VITALS: BP 134/69
[2020-04-24] MEDS: ATORVASTATIN 40 MG TABLET PO SCH (20:06)
[2020-04-24] MEDS: CEFEPIME HCL 1 G in IV DEXTROSE 5% 50 ML IV SCH (20:06)
[2020-04-24 22:54] VITALS: BP 144/55
[2020-04-25 00:09] VITALS: BP 134/51
[2020-04-25] MEDS: JEVITY 1.2 1000 ML LIQUID GT PRN ×2 (00:49→23:49)
[2020-04-25] MEDS: IV D5 1/2 NS 1000 ML 1,000 ML IV PRN (00:59)
[2020-04-25 04:12] VITALS: BP 143/48
--- NOTE | 2020-04-25 06:18 | NUR ---
Patient resting. No s/s of acute distress noted at this time. Pt on 2L NC O2 @ 99%. NGT Right Nares patent and in place infusing @ 50ml/hr pt tolerated well. Feeding paused at 0600 and to resume at 0800 per order. Pt temperature remained WNL. HOB elevated, aspiration precaution in place. Rosas patent and intact draining via gravity. All needs were met and attended to.
[2020-04-25] MEDS: MIRTAZAPINE 15 MG TABLET PO SCH (08:10)
[2020-04-25] MEDS: CEFEPIME HCL 1 G in IV DEXTROSE 5% 50 ML IV SCH ×2 (08:16→20:12)
[2020-04-25] MEDS: FAMOTIDINE. 20 MG/2 ML VIAL IV SCH (08:16)
[2020-04-25] MEDS: CLOTRIMAZOLE 1% CREAM 30 GM TUBE TOP SCH ×2 (09:26→16:46)
[2020-04-25 13:07] VITALS: BP 169/66
[2020-04-25 14:28] LABS: CARBON DIOXIDE 16 mmol/L (21-32); CHLORIDE 114 mmol/L (98-107); CREATININE 1.7 mg/dL (0.6-1.3); GLUCOSE 107 mg/dL (74-106); MAGNESIUM 2.1 mg/dL (1.8-2.4); PHOSPHOROUS 3.7 mg/dL (2.5-4.9); POTASSIUM 5.3 mmol/L (3.5-5.1); UREA NITROGEN, BLOOD 32 mg/dL (7-18)
[2020-04-25 16:33] VITALS: BP 138/75
[2020-04-25 20:00] VITALS: BP 156/67
[2020-04-25] MEDS: ATORVASTATIN 40 MG TABLET PO SCH (20:12)
--- NOTE | 2020-04-25 21:00 | NUR ---
Pt hypothermic rectal temp 94.3. Notified [facility]. New orders given for demetrio hugger and warming measures. Will continue to monitor patient temperature and s/s of hypothermia
[2020-04-26] VITALS: BP 108/67
[2020-04-26 04:00] VITALS: BP 114/63
--- NOTE | 2020-04-26 06:34 | NUR ---
Patient resting. No s/s of acute distress noted at this time. Pt on 2L NC O2 @ 99%. NGT Left Nares feeding paused at 0600 and to resume at 0800 per order. Warming measures maintained, rectal temp 97.3. HOB elevated, aspiration precaution in place. Rosas patent and intact draining via gravity. All needs were met and attended to.
--- NOTE | 2020-04-26 07:00 | NUR ---
Notified Dr. Saenz of Shannon placement on 04/16 and no order on file at that time for insertion. New orders given to repeat UA and D/C shannon. Shannon in place until UA is collected, will endorse to oncoming shift.
[2020-04-26 07:38] LABS: BILIRUBIN,DIRECT 0.2 mg/dL (0.0-0.2); BILIRUBIN,TOTAL 0.4 mg/dL (0.2-1.0); TOTAL PROTEIN, SERUM 4.5 g/dL (6.4-8.2)
[2020-04-26 08:00] VITALS: BP 122/43
--- NOTE | 2020-04-26 09:00 | NUR ---
Received pt in bed, non-verbal. Opens eyes to light pain stimuli. On O2 2 L via NC, saturating at 99%. No SOB, no acute distress noted. Eligio hugger in place, temperature WNL. VSS. SR on tele monitor. NGT right nare in place, placement checked with stethoscope, no residual noted, patent. HOB elevated, aspiration precautions in place. PATRICIA midline patent and intact. Rosas catheter patent and intact, draining yellow urine. Bed alarm on, safety measures in place. Will continue to monitor. Addendum: 04/26/20 at 2218 by XIAO MONSON RN RN NGT Left nare
[2020-04-26 11:38] VITALS: BP 100/46
[2020-04-26] MEDS: MIRTAZAPINE 15 MG TABLET PO SCH (12:12)
[2020-04-26] MEDS: FAMOTIDINE. 20 MG/2 ML VIAL IV SCH (12:12)
[2020-04-26] MEDS: CLOTRIMAZOLE 1% CREAM 30 GM TUBE TOP SCH ×2 (12:12→17:00)
[2020-04-26] MEDS: CEFEPIME HCL 1 G in IV DEXTROSE 5% 50 ML IV SCH (12:12)
[2020-04-26 13:50] LABS: *BILIRUBIN,URIN NEGATIVE (NEGATIVE); *BLOOD, URINE 2+ (NEGATIVE); *CLARITY,URINE TURBID (CLEAR); *COLOR,URINE YELLOW (YELLOW); *KETONES,URINE NEGATIVE (NEGATIVE); *UROBILINOGEN,URINE 0.2 E.U./dl (NORMAL); LEUKOCYTE ESTERASE ,URINE 2+ (NEGATIVE); NITRITE, URINE NEGATIVE (NEGATIVE); PH,URINE 5.5 (5.0-8.0); UGLUCOSE NEGATIVE (NEGATIVE)
--- NOTE | 2020-04-26 14:15 | NUR ---
Notified by technical analyst of 122 HR on monitor. Discovered patient with increased work of breathing and foamy secretions. HOB elevated further, NGT feeding turned off, suctioned secretions with yankaur attachment. Called respiratory therapy and rapid response. Pt VS: O2 92% 2 L NC, BP 145/67, HR 121.
--- NOTE | 2020-04-26 14:33 | NUR ---
RT arrived to help with suctioning patient. Placed pt on 10L simple mask, pt saturating at 97%. Other VS: Blood pressure 153/80, Heart rate 132. Addendum: 04/26/20 at 2209 by XIAO MONSON RN RN RT Frankie
--- NOTE | 2020-04-26 14:45 | NUR ---
Dr. Malone notified of pt status, agreed to examine pt. Dr. Malone ordered ABG, CXR, aware of status and vitals. Pt to be transferred to ICU, per Product Development Technician pt will be transferred to ER instead as no beds in ICU. Vital signs: O2 98% on 10 L simple mask, Blood pressure 146/46, heart rate 119.
[2020-04-26 14:59] LABS: ABG BASE EXCESS -11.5 mmol/L; ABG HCO3 15.8 mmol/L; ABG PCO2 40.8 mmHg (35.0-45.0); ABG PH 7.205 (7.350-7.450); ABG PO2 182.8 mmHg (75.0-100.0); ABG SITE LEFT RADIAL; ABG TOTAL HEMOGLOBIN 10.2 G/dL (12.0-16.0); COHb 0.6 % (0.5-1.5); MetHb 0.5 % (0.0-1.5); O2Hb 98.1 % (94.0-97.0)
[2020-04-26] MEDS ORDERED: ALBUTEROL SULFATE 1.25 MG/3 ML NEBU NEB PRN (15:00)
--- NOTE | 2020-04-26 15:05 | NUR ---
Pt transferred to ER with RT Frankie. On 10 L simple mask. Vitals before transfer: O2 93% on 10 L simple mask, Blood pressure 150/45, Heart rate 117, respirations 24 and labored. Report given to ER nurse Jodie.
--- NOTE | 2020-04-26 15:15 | NUR ---
Recieved pt from nurse Carmen from Telemetry unit, initially for intubation but per CN and RT Aleksander and RT Frankie and Dr. Malone, intubation held d/t blood gasses not indicating need for intubation. Pt noted to have agonal respirations, RR at 10 per minute; pt was brought down to ED on a simple mask. Pt placed on 02 via NC by RT, and saturation noted at 99%. Placed on bedside monitor. Noted to be tachycardic at 114. Pt currently CCU status. Awaiting admission to CCU.
--- NOTE | 2020-04-26 16:03 | NUR ---
Paged Dr. Ortiz to inform him of transition
--- NOTE | 2020-04-26 17:01 | NUR ---
Dr. Ortiz called to ED, stated to still continue tube feedings.
--- NOTE | 2020-04-26 17:09 | NUR ---
Paged Dr. Ortiz for pt to inform him of no labs since 04/24/20.
--- NOTE | 2020-04-26 18:00 | NUR ---
Patient in [facility]. Noted with respirations of 12. No acute distress. Pending admission to CCU.
[2020-04-26 18:44] LABS: BACTERIA,URINE FEW /HPF (NONE SEEN); RBC,URINE 20-50 /HPF (0-3); SQUAMOUS EPITHELIAL CELL,UR FEW /HPF (NONE SEEN); WBC,URINE TNTC /HPF (0-3); YEAST,URINE BUDDING YEAST /HPF (NONE SEEN)
--- NOTE | 2020-04-26 19:09 | NUR ---
SBAR report given to Stacy ROSADO
--- NOTE | 2020-04-26 20:21 | NUR ---
unable to draw blood on patient at this time, made aware
[2020-04-26] MEDS: ATORVASTATIN 40 MG TABLET PO SCH (21:00)
[2020-04-26] MEDS ORDERED: ATORVASTATIN 40 MG TABLET ONE (22:20)
--- NOTE | 2020-04-26 23:37 | NUR ---
Patient noted resting in bed, all needs met at this time
--- NOTE | 2020-04-27 00:51 | NUR ---
NG tube pulled out by patient, new NG tube placed, residual checked 20 ml noted and air bubble placement checked with stethoscope
--- NOTE | 2020-04-27 06:23 | NUR ---
no signs of acute distress noted at this time
--- NOTE | 2020-04-27 07:11 | NUR ---
PT IS RESTING IN BED COMFORTABLY. NO S/S OF ACUTE DISTRSS AT THIS TIME. CONTINUE TO MONITOR THE PT.
[2020-04-27 08:27] LABS: ALANINE AMINOTRANSFERASE 33 U/L (14-59); ALKALINE PHOSPHATASE 102 U/L (50-136); ASPARTATE AMINOTRANSFERASE 34 U/L (15-37); BILIRUBIN,TOTAL 0.5 mg/dL (0.2-1.0); CARBON DIOXIDE 19 mmol/L (21-32); CHLORIDE 112 mmol/L (98-107); CREATININE 2.2 mg/dL (0.6-1.3); GLUCOSE 180 mg/dL (74-106); MAGNESIUM 2.1 mg/dL (1.8-2.4); PHOSPHOROUS 4.2 mg/dL (2.5-4.9); POTASSIUM 5.3 mmol/L (3.5-5.1); TOTAL PROTEIN, SERUM 5.9 g/dL (6.4-8.2); UREA NITROGEN, BLOOD 36 mg/dL (7-18)
[2020-04-27] MEDS ORDERED: NITROGLYCERIN OINT 1 GM PACKET TP PRN ×2 (09:00→09:45)
[2020-04-27] MEDS ORDERED: NITROGLYCERIN OINT 1 GM PACKET TP ONE ×2 (09:02→15:52)
[2020-04-27] MEDS ORDERED: FAMOTIDINE. 20 MG/2 ML VIAL IV ONE (09:04)
[2020-04-27] MEDS ORDERED: MIRTAZAPINE 15 MG TAB.RAPDIS ONE (09:04)
[2020-04-27] MEDS: FAMOTIDINE. 20 MG/2 ML VIAL IV SCH (09:40)
[2020-04-27] MEDS: MIRTAZAPINE 15 MG TABLET PO SCH (09:41)
[2020-04-27] MEDS: CLOTRIMAZOLE 1% CREAM 30 GM TUBE TOP SCH ×2 (09:41→17:29)
[2020-04-27 09:50] LABS: ABG BASE EXCESS -9.3 mmol/L; ABG HCO3 14.6 mmol/L; ABG PCO2 25.9 mmHg (35.0-45.0); ABG PH 7.369 (7.350-7.450); ABG PO2 107.9 mmHg (75.0-100.0); ABG SITE LEFT RADIAL; ABG TOTAL HEMOGLOBIN 10.2 G/dL (12.0-16.0); COHb 0.5 % (0.5-1.5); O2Hb 97.8 % (94.0-97.0); VENT MODE room air
[2020-04-27 10:33] LABS: BASOPHILS % (AUTO) 0.4 % (0.0-2.0); EOSINOPHILS % (AUTO) 0.4 % (0.0-7.0); HEMATOCRIT 27.4 % (31.2-41.9); HEMOGLOBIN 9.3 g/dL (10.9-14.3); LYMPHOCYTES # (AUTO) 0.6 K/uL (20.0-40.0); LYMPHOCYTES % (AUTO) 8.1 % (20.5-51.5); MEAN CORPUSCULAR HEMOGLOBIN 31.2 uug (24.7-32.8); MEAN CORPUSCULAR HGB CONC 34 g/dL (32.3-35.6); MEAN CORPUSCULAR VOLUME 91.8 fL (75.5-95.3); MONOCYTES # (AUTO) 0.6 K/uL (2.0-10.0); MONOCYTES % (AUTO) 9.4 % (0.0-11.0); NEUTROPHILS # (AUTO) 5.6 K/uL (1.8-8.9); NEUTROPHILS % (AUTO) 81.7 % (38.5-71.5); PLATELET COUNT (AUTO) 128 K/uL (179-408); RED BLOOD CELL COUNT(AUTO) 2.99 MIL/uL (3.63-4.92); WHITE BLOOD COUNT (AUTO) 6.8 K/uL (3.8-11.8)
--- NOTE | 2020-04-27 10:44 | NUR ---
DR RODRIGUEZ WAS CALLED TO REPORT PT's ELEVATED B/P 203/108. ORDERS WERE RECEIVED AND CARRIED OUT.
[2020-04-27] MEDS: JEVITY 1.2 1000 ML LIQUID GT PRN (11:52)
--- NOTE | 2020-04-27 14:44 | NUR ---
DR LEIVA EVALUATED THE PT.
--- NOTE | 2020-04-27 17:42 | NUR ---
DR LEIVA WAS CALLED TO CLARIFY PT's ADMISSION STATUS. ACCORDING TO DR LEIVA PT CAN BE ADMITED TO TELEMETRY FLOOR FOR COVID -19 PTs.
--- NOTE | 2020-04-27 19:04 | NUR ---
REPORT GIVEN TO IRRIGATOR OVERHEAD VENKAT BANKS.
--- NOTE | 2020-04-27 19:43 | NUR ---
NITROBID PASTE REMOVED AT THIS TIME FOR ABNORMALLY LOW B/P
--- NOTE | 2020-04-27 20:23 | NUR ---
AWAITING RETURN CALL FROM RONALD ROSADO TO GIVE REPORT
[2020-04-27 20:50] VITALS: BP 145/90
--- NOTE | 2020-04-27 20:55 | NUR ---
Pt. admitted to [facility] , under care of Dr. Clark patient has no belongings
--- NOTE | 2020-04-27 21:05 | NUR ---
Received patient via gurney from ED. No s/s of acute distress noted at this time. Right nares NGT patent and intact, noted 20 mL residual, placement confirmed and auscultated with air bubble. PATRICIA midline patent and intact. Rosas in place and draining via gravity. Safety measures and isolation precautions in place.
[2020-04-27] MEDS: ATORVASTATIN 40 MG TABLET PO SCH (22:25)
[2020-04-28 00:03] VITALS: BP 153/87
[2020-04-28 04:03] VITALS: BP 143/88
[2020-04-28 06:19] LABS: BASOPHILS % (AUTO) 0.6 % (0.0-2.0); EOSINOPHILS # (AUTO) 0.1 K/uL (0.0-0.7); EOSINOPHILS % (AUTO) 1.1 % (0.0-7.0); HEMATOCRIT 25.6 % (31.2-41.9); HEMOGLOBIN 8.7 g/dL (10.9-14.3); LYMPHOCYTES # (AUTO) 0.5 K/uL (20.0-40.0); LYMPHOCYTES % (AUTO) 8.4 % (20.5-51.5); MEAN CORPUSCULAR HEMOGLOBIN 31.1 uug (24.7-32.8); MEAN CORPUSCULAR HGB CONC 34 g/dL (32.3-35.6); MONOCYTES # (AUTO) 0.5 K/uL (2.0-10.0); MONOCYTES % (AUTO) 8.2 % (0.0-11.0); NEUTROPHILS # (AUTO) 5.3 K/uL (1.8-8.9); NEUTROPHILS % (AUTO) 81.7 % (38.5-71.5); PLATELET COUNT (AUTO) 101 K/uL (179-408); RED BLOOD CELL COUNT(AUTO) 2.79 MIL/uL (3.63-4.92); WHITE BLOOD COUNT (AUTO) 6.5 K/uL (3.8-11.8)
[2020-04-28 06:33] LABS: ALANINE AMINOTRANSFERASE 30 U/L (14-59); ALKALINE PHOSPHATASE 90 U/L (50-136); ASPARTATE AMINOTRANSFERASE 31 U/L (15-37); BILIRUBIN,TOTAL 0.6 mg/dL (0.2-1.0); CARBON DIOXIDE 21 mmol/L (21-32); CHLORIDE 115 mmol/L (98-107); GLUCOSE 116 mg/dL (74-106); MAGNESIUM 1.9 mg/dL (1.8-2.4); PHOSPHOROUS 4.3 mg/dL (2.5-4.9); POTASSIUM 5.2 mmol/L (3.5-5.1); TOTAL PROTEIN, SERUM 5.3 g/dL (6.4-8.2); UREA NITROGEN, BLOOD 40 mg/dL (7-18)
[2020-04-28] MEDS: FAMOTIDINE 20 MG TABLET GT SCH (09:30)
[2020-04-28] MEDS: MIRTAZAPINE 15 MG TABLET PO SCH (09:30)
[2020-04-28] MEDS: CLOTRIMAZOLE 1% CREAM 30 GM TUBE TOP SCH ×2 (09:31→17:24)
[2020-04-28 12:00] VITALS: BP 147/89
[2020-04-28] MEDS ORDERED: FAMO20TA8 GT (15:45)
[2020-04-28] MEDS ORDERED: LACT-209 GT (15:45)
[2020-04-28 16:00] VITALS: BP 100/82
--- NOTE | 2020-04-28 18:39 | NUR ---
received pt with Right nares NGT patent and intact, feeding increasing to 25ml/hr, placement confirmed and auscultated with air bubble. PATRICIA midline patent and intact. Rosas in place and draining via gravity. Safety measures and isolation precautions in place. pt bed was replaced with new bed for better elevated of HOB
--- NOTE | 2020-04-28 19:48 | NUR ---
Pt received in bed, alert to self. Does not appear to be in distress at this time. Jevity is running via NG tube at 25cc/hr with no complications. HOB is elevated. Pt is SR on monitor. On RA with no s/s of respiratory distress. Bed is locked and in lowest position. No other issues or concerns at this time.
[2020-04-28] MEDS: ATORVASTATIN 40 MG TABLET PO SCH (20:04)
[2020-04-28 20:09] VITALS: BP 151/70
[2020-04-28] MEDS: JEVITY 1.2 1000 ML LIQUID GT PRN (23:36)
[2020-04-29 00:09] VITALS: BP 150/66
[2020-04-29 04:09] VITALS: BP 163/68
[2020-04-29 08:00] LABS: BASOPHILS % (AUTO) 0.3 % (0.0-2.0); EOSINOPHILS # (AUTO) 0.1 K/uL (0.0-0.7); HEMATOCRIT 26.7 % (31.2-41.9); LYMPHOCYTES # (AUTO) 0.7 K/uL (20.0-40.0); LYMPHOCYTES % (AUTO) 6.8 % (20.5-51.5); MEAN CORPUSCULAR HEMOGLOBIN 31.2 uug (24.7-32.8); MEAN CORPUSCULAR HGB CONC 34 g/dL (32.3-35.6); MONOCYTES # (AUTO) 0.6 K/uL (2.0-10.0); MONOCYTES % (AUTO) 6.1 % (0.0-11.0); NEUTROPHILS # (AUTO) 8.5 K/uL (1.8-8.9); NEUTROPHILS % (AUTO) 85.8 % (38.5-71.5); PLATELET COUNT (AUTO) 117 K/uL (179-408); WHITE BLOOD COUNT (AUTO) 9.9 K/uL (3.8-11.8)
[2020-04-29] MEDS: JEVITY 1.2 1000 ML LIQUID GT PRN (08:00)
[2020-04-29 08:14] LABS: CARBON DIOXIDE 22 mmol/L (21-32); CHLORIDE 118 mmol/L (98-107); GLUCOSE 90 mg/dL (74-106); MAGNESIUM 1.9 mg/dL (1.8-2.4); PHOSPHOROUS 4.2 mg/dL (2.5-4.9); POTASSIUM 5.4 mmol/L (3.5-5.1); UREA NITROGEN, BLOOD 39 mg/dL (7-18)
[2020-04-29] MEDS ORDERED: SODIUM POLYSTYRENE SULFONATE 15 G/60 ML LIQUID UDC PO ONE (08:45)
[2020-04-29] MEDS: MIRTAZAPINE 15 MG TABLET PO SCH (08:51)
[2020-04-29] MEDS: FAMOTIDINE 20 MG TABLET GT SCH (08:52)
[2020-04-29] MEDS: CLOTRIMAZOLE 1% CREAM 30 GM TUBE TOP SCH ×2 (09:06→17:21)
[2020-04-29 12:00] VITALS: BP 140/82
[2020-04-29 16:00] VITALS: BP 151/51
--- NOTE | 2020-04-29 19:30 | NUR ---
Received pt in bed, alert to self. Feeding is running JevUbi 1.2 at 50cc. Pt is tolerating well. Flushed with 150cc of water. SR on tele. Bed is locked and in lowest position. No other issues or concerns at this time.
[2020-04-29 20:06] VITALS: BP 106/67
[2020-04-29] MEDS: ATORVASTATIN 40 MG TABLET PO SCH (21:40)
[2020-04-30 00:09] VITALS: BP 117/87
[2020-04-30 04:09] VITALS: BP 126/73
[2020-04-30] MEDS: JEVITY 1.2 1000 ML LIQUID GT PRN (06:23)
[2020-04-30] MEDS: CLOTRIMAZOLE 1% CREAM 30 GM TUBE TOP SCH ×2 (08:36→17:20)
[2020-04-30] MEDS: MIRTAZAPINE 15 MG TABLET PO SCH (08:36)
[2020-04-30] MEDS: FAMOTIDINE 20 MG TABLET GT SCH (08:36)
[2020-04-30 11:45] VITALS: BP 188/76
[2020-04-30 14:52] VITALS: BP 120/103
--- NOTE | 2020-04-30 19:30 | NUR ---
Received pt in bed, alert to self. Does not appear to be in any distress. On RA sating at 97%. Jevity 1.2 is running at 50cc and patient is tolerating well. NG tube flushed with 150cc of water. SR on monitor. Bed is locked and in lowest position. Safety and comfort provided. No other issues or concerns at this time.
[2020-04-30 20:09] VITALS: BP 142/67
[2020-04-30] MEDS: ATORVASTATIN 40 MG TABLET PO SCH (21:00)
[2020-05-01 00:06] VITALS: BP 154/64
[2020-05-01] MEDS: JEVITY 1.2 1000 ML LIQUID GT PRN (02:47)
[2020-05-01 04:06] VITALS: BP 135/69
[2020-05-01 06:58] LABS: BASOPHILS # (AUTO) 0.1 K/uL (0.0-8.0); BASOPHILS % (AUTO) 0.8 % (0.0-2.0); EOSINOPHILS # (AUTO) 0.1 K/uL (0.0-0.7); EOSINOPHILS % (AUTO) 1.3 % (0.0-7.0); HEMATOCRIT 28.2 % (31.2-41.9); HEMOGLOBIN 9.5 g/dL (10.9-14.3); LYMPHOCYTES # (AUTO) 0.8 K/uL (20.0-40.0); LYMPHOCYTES % (AUTO) 9.5 % (20.5-51.5); MEAN CORPUSCULAR HEMOGLOBIN 31.8 uug (24.7-32.8); MEAN CORPUSCULAR HGB CONC 34 g/dL (32.3-35.6); MEAN CORPUSCULAR VOLUME 94.7 fL (75.5-95.3); MONOCYTES # (AUTO) 0.6 K/uL (2.0-10.0); MONOCYTES % (AUTO) 6.9 % (0.0-11.0); NEUTROPHILS # (AUTO) 6.6 K/uL (1.8-8.9); NEUTROPHILS % (AUTO) 81.5 % (38.5-71.5); PLATELET COUNT (AUTO) 128 K/uL (179-408); RED BLOOD CELL COUNT(AUTO) 2.98 MIL/uL (3.63-4.92); WHITE BLOOD COUNT (AUTO) 8.1 K/uL (3.8-11.8)
--- NOTE | 2020-05-01 07:30 | NUR ---
Received patient awake in bed. Patient is aphasic. No sign of distress noted. Patient is NPO awaiting a PEG placement. Patient has a NG tube. Safety precautions are in place. Will continue to monitor.
[2020-05-01 07:31] LABS: CARBON DIOXIDE 25 mmol/L (21-32); CHLORIDE 118 mmol/L (98-107); CREATININE 1.8 mg/dL (0.6-1.3); GLUCOSE 75 mg/dL (74-106); POTASSIUM 5.9 mmol/L (3.5-5.1); UREA NITROGEN, BLOOD 43 mg/dL (7-18)
[2020-05-01] MEDS: MIRTAZAPINE 15 MG TABLET PO SCH ×2 (08:48→09:00)
[2020-05-01] MEDS: FAMOTIDINE 20 MG TABLET GT SCH ×2 (08:48→09:00)
[2020-05-01] MEDS: CLOTRIMAZOLE 1% CREAM 30 GM TUBE TOP SCH ×2 (08:49→17:27)
--- NOTE | 2020-05-01 08:50 | NUR ---
Scanned and prepared patient's medication to administer through NG tube. Patient order is NPO so did not give medications. Medication wasted. Will continue to monitor.
[2020-05-01] MEDS ORDERED: SODIUM POLYSTYRENE SULFONATE ENEMA 30 G/120 ML BOTTLE RC ONE (11:15)
[2020-05-01] MEDS ORDERED: FUROSEMIDE 40 MG/4 ML VIAL IV ONE (11:15)
--- NOTE | 2020-05-01 12:30 | NUR ---
Patient picked up by surgery. Taken to OR to insert PEG. Will continue to monitor when patient is back on the floor.
[2020-05-01 13:07] VITALS: BP 112/82
--- NOTE | 2020-05-01 14:50 | NUR ---
Patient returned from surgery. Patient is in stable condition. No sign of distress noted. Patient vitals are WNL. Received report form ALONZO Prado. Will continue to monitor.
[2020-05-01 16:48] VITALS: BP 158/73
--- NOTE | 2020-05-01 19:15 | NUR ---
Patient has been resting since surgery. No sign of distress noted. All medications given as ordered. Tube feeding is scheduled to start om 05/02/20 at 0800. Safety precautions in place. Will endorse to the oncoming nurse.
--- NOTE | 2020-05-01 19:30 | NUR ---
Received patient lying in bed. Alert and oriented to self only. Aphasic, able to make eye contact when name called. In no acute distress. No signs or symptoms of pain or SOB noted. On O2 at 3LPM via NC in place. O2 sat at 99%. NSR on tele at 81/min. Left upper arm midline intact and patent. G tube intact and patent. Rosas catheter intact and draining via gravity. COVID precaution initiated. Safety measure initiated and call de la vega within reached.
[2020-05-01 20:00] VITALS: BP 149/74
[2020-05-01] MEDS: ATORVASTATIN 40 MG TABLET PO SCH (20:14)
[2020-05-02 00:55] VITALS: BP 142/97
[2020-05-02 04:00] VITALS: BP_SYST 127; BP_SYST 128; BP_DIAS 58; BP_DIAS 74
--- NOTE | 2020-05-02 06:27 | NUR ---
No significant event throughout the shift. In no acute distress. No signs or symptoms of pain or SOB noted. On O2 at 3LPM via NC in place. O2 sat at 98%. NSR on tele at 83/min. Left upper arm midline intact and patent. G-tube intact and patent. Rosas catheter intact and draining via gravity. Left hand mitten in place. Needs anticipated to and met. COVID precaution maintained. Safety measure initiated and call de la vega within reached.
--- NOTE | 2020-05-02 07:30 | NUR ---
Received patient awake in bed. Patient is aphasic. No sign of distress noted. Patient had PEG tube placement yesterday. Will start feeding today at 0800. Jevity 1.2 at 50 cc's per hour. 22 hours infusion off at 0600 and on at 0800 daily. Safety precautions are in place. Will continue to monitor.
[2020-05-02] MEDS ORDERED: JEVITY 1.2 1000 ML LIQUID GT PRN (08:00)
[2020-05-02] MEDS: FAMOTIDINE 20 MG TABLET GT SCH (09:05)
[2020-05-02] MEDS: MIRTAZAPINE 15 MG TABLET PO SCH (09:05)
[2020-05-02] MEDS: CLOTRIMAZOLE 1% CREAM 30 GM TUBE TOP SCH ×2 (09:05→17:11)
[2020-05-02 12:30] VITALS: BP 109/62
[2020-05-02 16:38] VITALS: BP 127/77
--- NOTE | 2020-05-02 17:00 | NUR ---
Spoke with Taryn ROSADO at [facility] to give report. RN asked that patient's Rosas and Midline be discontinued. Discharge instructions given. maintenance service supervisor scheduled with [facility] at 1630.
[2020-05-02] MEDS ORDERED: IV LACTATED RINGERS SOLUTION 1,000 ML BAG IV ONE (17:29)
[2020-05-02] MEDS ORDERED: PHENYLEPHRINE 10 MG/1 ML VIAL IV ONE (17:29)
[2020-05-02] MEDS ORDERED: CEFAZOLIN 1 G VIAL IM ONE (17:29)
[2020-05-02] MEDS ORDERED: PROPOFOL 200 MG/20 ML BOTTLE IV ONE (17:29)
[2020-05-02] MEDS ORDERED: EPHEDRINE SULFATE 50 MG/ML AMPUL IM ONE (17:29)
[2020-05-02] MEDS ORDERED: IRR STERIL WATER FOR IRR 1000 ML BOTTLE IR ONE (17:29)
--- NOTE | 2020-05-02 17:30 | NUR ---
Patient picked up by [facility]. Discharge instructions given in report to facility. All paperwork sent with patient. Patient has no belonging. Rosas discontinued, Midline removed, ID band removed. Pictures taken and placed in chart. All medications given as ordered. Patient is stable on room air , no sign of distress noted.
== END 2020-05-02 17:30 | DRG 682 ==
LOC: ER 19:47 → TELE3 04-15 03:02 → TRANSITION 04-26 15:07 → TELE 04-27 20:25
PROVIDERS: ADMIT Internal Medicine; ATTEND Internal Medicine
PROC: 05HY33Z Insertion of Infusion Device into Upper Vein, Percutaneous Approach (ICD-10-PCS; 2020-04-15)
PROC: 30233N1 Transfusion of Nonautologous Red Blood Cells into Peripheral Vein, Percutaneous Approach (ICD-10-PCS; principal; 2020-04-19)
PROC: 0DH63UZ Insertion of Feeding Device into Stomach, Percutaneous Approach (ICD-10-PCS; 2020-05-01)
DX: N17.0 Acute kidney failure with tubular necrosis (principal); U07.1 COVID-19; J96.02 Acute respiratory failure with hypercapnia; J96.01 Acute respiratory failure with hypoxia; E87.0 Hyperosmolality and hypernatremia; I69.951 Hemiplegia and hemiparesis following unspecified cerebrovascular disease affecting right dominant side; G93.40 Encephalopathy, unspecified; B37.49 Other urogenital candidiasis; F03.90 Unspecified dementia, unspecified severity, without behavioral disturbance, psychotic disturbance, mood disturbance, and anxiety; D50.0 Iron deficiency anemia secondary to blood loss (chronic); D69.6 Thrombocytopenia, unspecified; E87.6 Hypokalemia; E78.5 Hyperlipidemia, unspecified; N18.9 Chronic kidney disease, unspecified; R13.10 Dysphagia, unspecified; Z96.611 Presence of right artificial shoulder joint; I12.9 Hypertensive chronic kidney disease with stage 1 through stage 4 chronic kidney disease, or unspecified chronic kidney disease; J44.9 Chronic obstructive pulmonary disease, unspecified; E88.09 Other disorders of plasma-protein metabolism, not elsewhere classified; R74.01 Elevation of levels of liver transaminase levels; R00.1 Bradycardia, unspecified; K29.70 Gastritis, unspecified, without bleeding; N13.9 Obstructive and reflux uropathy, unspecified; K80.20 Calculus of gallbladder without cholecystitis without obstruction
CPT/HCPCS: 36415; 36556; 36600; 43761; 51702; 70030-TC; 71045; 76700; 82533; 82784; 83550; 83605; 83615; 83735; 83970; 84100; 84155; 84156; 84165; 84300; 84443; 84480; 85018; 85025; 85610; 85651; 85730; 86038; 86140; 86334; 86430; 86592; 86706; 86803; 86850; 86900; 86901; 86920; 87040; 87070; 87077; 87086; 87340; 87400; 93005; A4217; A4663; C1758; G0378; J0690; J0692; J0696; J1644; J2370; J2543; J3370; J3475; J3480; J3490; J7030; J7040; J7050; J7060; J7070; J7120; P9016-BL; P9021; U0003